=== PATIENT | male | born 2000 | race Caucasian/White ===

== ENCOUNTER 2021-10-10 10:32 | Emergency (ER) | payer MEDICAID, OTHER ==
[2021-10-10] MEDS ORDERED: Diphtheria,Pertussis(Acell),Tetanus Vaccine 0.5 ML Syringe IM ONE (10:46)
[2021-10-10] MEDS ORDERED: Ampicillin/Sulbactam Na 1.5 GM in Sodium Chloride 0.9% 50 ML IV ONE (10:47)
[2021-10-10] MEDS ORDERED: VANCOmycin 1.5 GM/300 ML 1.5 GM in Premix Bag 1 BAG IV ONE (11:00)
[2021-10-10] MEDS ORDERED: Ampicillin/Sulbactam Na 1.5 GM in Sodium Chloride 0.9% 50 ML IV SCH (11:00)
[2021-10-10] MEDS ORDERED: Lactated Ringers 1,000 ML IV SCH (11:15)
--- NOTE | 2021-10-10 11:15 | EDM.PDOC ---
ED HPI GENERAL MEDICAL PROBLEM - General Chief Complaint: Upper Extremity Injury/Pain Stated Complaint: RIGHT POINTER FINGER SWELLING Time Seen by Provider: 10/10/21 10:39 - History of Present Illness INITIAL COMMENTS - FREE TEXT/NARRATIVE: CHIEF COMPLAINT(S): My finger is swollen on right hand HISTORY OF PRESENT ILLNESS: This is a 21-year-old man who comes to the emergency department with a chief complaint of right finger swelling. The patient states that for approximately 4 days now he has been experiencing pain and swelling in his right index finger. He states that he thought he had jammed it at work when he was working with a pipe however it started to swell, turned red and started to be painful. He states that he tried to drain it by cutting it. He states that he did go to [facility] and had an x-ray which did not reveal any fractures however his swelling and redness has continued to worsen and increase. He denies any fevers, chills, chest pain or shortness of breath. He has not yet taken any pain medication. The pain is exacerbated by movement. Pain is improved by not moving his finger. There are no other symptoms. Patient states that his tetanus is not up-to-date. There is no radiation of this pain REVIEW OF SYSTEMS: Constitutional: Denies fever, chills. Eyes: Denies eye pain Ears, Nose, Mouth, & Throat: Denies earache Cardiovascular: Denies chest pain Respiratory: Denies shortness of breath Gastrointestinal: Denies Nausea, vomiting, diarrhea, hematochezia. Genitourinary: Denies hematuria Skin: Positive for redness to right finger and hand MSK: Positive for right finger pain and swelling Neurological: Denies blurred vision, numbness, tingling, weakness Psychiatric: Denies depression PAST MEDICAL HISTORY: As per history of present illness and as reviewed below o therwise noncontributory. SURGICAL HISTORY: As per history of present illness and as reviewed below otherwise noncontributory. SOCIAL HISTORY: As per history of present illness and as reviewed below otherwise noncontributory. FAMILY HISTORY: As per history of present illness and as reviewed below otherwise noncontributory. EXAMINATION OF ORGAN SYSTEMS/BODY AREAS: Constitutional: Blood pressure is 129/88, heart rate 102, respiratory rate 18 with an oxygen saturation 98% on room air. Temperature 36.6 General: Well-appearing man who is in no acute distress Psychiatric: Appropriate mood and affect. Eyes: No scleral icterus or conjunctival erythema ENMT: Moist mucous membranes. No pharyngeal erythema Cardiovascular: Regular, rate, and rhythm. No gallops, murmurs, or rubs. Bilateral upper extremity pulses symmetric and intact. No peripheral edema. No JVD. Capillary refill of the distal right index finger is less than 2 seconds Respiratory: Lungs clear to auscultation bilaterally. No wheezes, rales, or rhonchi. Gastrointestinal: Soft, non-tender, non-distended. Normoactive bowel sounds Genitourinary: No suprapubic tenderness Musculoskeletal: The patient has decreased range of motion of the left index finger. There is pain with passive extension. Right index finger is held in slight flexion skin: Fusiform swelling of the right index finger with tenderness and warmth that extends to the mid hand and the posterior aspect of the hand. There is a 2 cm superficial laceration to the anterior aspect of the right index finger. Neurological: Alert, GCS 15 distal sensation is intact MEDICAL DECISION MAKING AND COURSE IN THE ED WITH INTERPRETATION/REVIEW OF DIAGNOSTIC STUDIES: This is a 21-year-old man without any significant past medical history who comes to the emergency department with right index finger swelling, pain concerning for deep space infection such as flexor tenosynovitis. At this time will obtain a septic work-up and start the patient on vancomycin and Unasyn. We will update the patient's tetanus status. We will also provide the patient with 1 L of lactated Ringer's bolus given the slight tachycardia. Will obtain a right hand x-ray. DDx: Flexor tenosynovitis, cellulitis, abscess Laboratory: CBC reveals a leukocytosis of 14.73 with neutrophilic predominance. INR is normal. CMP reveals hyperglycemia at 125, hyperbilirubinemia with a total bilirubin of 1.1 otherwise unremarkable. CRP is elevated at 5. ESR is normal at 3. Covid and influenza are negative. The radiological images were viewed by myself along with reading the report from the radiologist. Right hand x-ray reveals diffuse soft tissue swelling about the index finger without osseous abnormality. After labs and imaging [facility] Dorsey who recommended incision and drainage I was comfortable to do it at bedside otherwise he can be transferred [facility]. At this time I do believe the patient requires specialty evaluation therefore we will [facility] I spoke with emergency physician Dr. Miranda who accepted the patient for transfer. The patient will be transferred via private vehicle. I did discuss the above results and plan with the patient and he was amenable to this plan. DISPOSITION: The patient was transferred to [facility] in [place] in stable yet serious condition CONDITION: Serious PROCEDURES: None FINAL IMPRESSION(S)/DIAGNOSES: 1. Acute right flexor tenosynovitis of the index finger Emmett Najera M.D. Right Finger-Index Pain Score (Numeric/FACES): 8 - Related Data Allergies Allergy/AdvReac Type Severity Reaction Status Date / Time No Known Allergies Allergy Verified 10/10/21 10:50 Home Meds: Home Meds . [No Known Home Meds] 10/10/21 [History] Past Medical History Musculoskeletal History: Reports: Other (See Below) Other Musculoskeletal History: Right index finger swelling - Infectious Disease History Infectious Disease History: Reports: None - Past Surgical History HEENT Surgical History: Reports: Myringotomy w Tube(s), Tonsillectomy Social & Family History - Caffeine Use Caffeine Use: Reports: Coffee, Energy Drinks, Soda, Tea - Recreational Drug Use Recreational Drug Use: No Review of Systems - Review of Systems Review Of Systems: See Below ED EXAM, GENERAL - Physical Exam Exam: See Below Course - Vital Signs Last Recorded V/S: Last Vital Signs Temp 36.6 C 10/10/21 10:40 Pulse 96 10/10/21 13:29 Resp 18 10/10/21 10:40 BP 130/77 10/10/21 13:29 Pulse Ox 99 10/10/21 13:29 - Orders/Labs/Meds Labs: Laboratory Tests 10/10/21 10/10/21 10/10/21 Range/Units 10:55 10:59 10:59 WBC 14.73 H (4.0-11.0) K/uL RBC 5.17 (4.50-5.90) M/uL Hgb 15.4 (13.0-17.0) g/dL Hct 45.3 (38.0-50.0) % MCV 87.6 (80.0-98.0) fL MCH 29.8 (27.0-32.0) pg MCHC 34.0 (31.0-37.0) g/dL RDW Std Deviation 42.2 (28.0-62.0) fl RDW Coeff of Ashlie 13 (11.0-15.0) % Plt Count 239 (150-400) K/uL MPV 11.00 (7.40-12.00) fL Neut % (Auto) 81.9 H (48.0-80.0) % Lymph % (Auto) 9.7 L (16.0-40.0) % [place] % (Auto) 7.5 (0.0-15.0) % Eos % (Auto) 0.8 (0.0-7.0) % Baso % (Auto) 0.1 (0.0-1.5) % Neut # (Auto) 12.1 H (1.4-5.7) K/uL Lymph # (Auto) 1.4 (0.6-2.4) K/uL [place] # (Auto) 1.1 H (0.0-0.8) K/uL Eos # (Auto) 0.1 (0.0-0.7) K/uL Baso # (Auto) 0.0 (0.0-0.1) K/uL Nucleated RBC % 0.0 /100WBC Nucleated RBCs # 0 K/uL ESR 3 (0-14) mm/hr INR Sodium (136-148) mmol/L Potassium (3.5-5.1) mmol/L Chloride (98-107) mmol/L Carbon Dioxide (21.0-32.0) mmol/L BUN (7.0-18.0) mg/dL Creatinine (0.8-1.3) mg/dL Est Cr Clr Drug Dosing mL/min Estimated GFR (MDRD) ml/min Glucose (74-106) mg/dL Lactic Acid (0.4-2.0) mmol/L Calcium (8.5-10.1) mg/dL Total Bilirubin (0.2-1.0) mg/dL AST (15-37) IU/L ALT (14-63) IU/L Alkaline Phosphatase (46-116) U/L C-Reactive Protein (0.00-0.90) mg/dL Total Protein (6.4-8.2) g/dL Albumin (3.4-5.0) g/dL Globulin (2.6-4.0) g/dL Albumin/Globulin Ratio (0.9-1.6) Influenza Type A RNA NEGATIVE (NEGATIVE) Influenza Type B RNA NEGATIVE (NEGATIVE) SARS-CoV-2 RNA (GUICHO) NEGATIVE (NEGATIVE) 10/10/21 10/10/21 10/10/21 Range/Units 10:59 10:59 10:59 WBC (4.0-11.0) K/uL RBC (4.50-5.90) M/uL Hgb (13.0-17.0) g/dL Hct (38.0-50.0) % MCV (80.0-98.0) fL MCH (27.0-32.0) pg MCHC (31.0-37.0) g/dL RDW Std Deviation (28.0-62.0) fl RDW Coeff of Ashlie (11.0-15.0) % Plt Count (150-400) K/uL MPV (7.40-12.00) fL Neut % (Auto) (48.0-80.0) % Lymph % (Auto) (16.0-40.0) % [place] % (Auto) (0.0-15.0) % Eos % (Auto) (0.0-7.0) % Baso % (Auto) (0.0-1.5) % Neut # (Auto) (1.4-5.7) K/uL Lymph # (Auto) (0.6-2.4) K/uL [place] # (Auto) (0.0-0.8) K/uL Eos # (Auto) (0.0-0.7) K/uL Baso # (Auto) (0.0-0.1) K/uL Nucleated RBC % /100WBC Nucleated RBCs # K/uL ESR (0-14) mm/hr INR 0.98 Sodium 143 (136-148) mmol/L Potassium 3.7 (3.5-5.1) mmol/L Chloride 104 (98-107) mmol/L Carbon Dioxide 28.6 (21.0-32.0) mmol/L BUN 12 (7.0-18.0) mg/dL Creatinine 0.9 (0.8-1.3) mg/dL Est Cr Clr Drug Dosing 125.61 mL/min Estimated GFR (MDRD) > 60.0 ml/min Glucose 125 H (74-106) mg/dL Lactic Acid 1.8 (0.4-2.0) mmol/L Calcium 8.8 (8.5-10.1) mg/dL Total Bilirubin 1.1 H (0.2-1.0) mg/dL AST 11 L (15-37) IU/L ALT 29 (14-63) IU/L Alkaline Phosphatase 85 (46-116) U/L C-Reactive Protein 5.00 H (0.00-0.90) mg/dL Total Protein 8.3 H (6.4-8.2) g/dL Albumin 4.5 (3.4-5.0) g/dL Globulin 3.8 (2.6-4.0) g/dL Albumin/Globulin Ratio 1.2 (0.9-1.6) Influenza Type A RNA (NEGATIVE) Influenza Type B RNA (NEGATIVE) SARS-CoV-2 RNA ([place]) (NEGATIVE) Meds: Medications Discontinued Medications Generic Name Dose Route Start Last Admin Trade Name Freq PRN Reason Stop Dose Admin Diphtheria/Tetanus/Acell Pertussis 0.5 ml 10/10/21 10:46 10/10/21 11:04 Diphtheria,Pertussis(Acell),Tetanus Vaccine 0.5 Ml Syringe IM 10/10/21 10:47 0.5 ml .ONCE ONE Administration Vancomycin HCl 1.5 gm/ Premix 300 mls @ 200 mls/hr 10/10/21 11:00 10/10/21 11:27 IV 10/10/21 12:29 200 mls/hr ONETIME ONE Administration Ampicillin Sodium/Sulbactam 50 mls @ 150 mls/hr 10/10/21 11:00 10/10/21 11:22 Sodium 1.5 gm/ Sodium Chloride IV 150 mls/hr ONETIME WES Administration Lactated Ringer's 1,000 mls @ 999 mls/hr 10/10/21 11:15 Ringers, Lactated IV ASDIRECTED WES Sodium Chloride 1,000 mls @ 999 mls/hr 10/10/21 12:59 10/10/21 13:03 Normal Saline IV 10/10/21 13:59 999 mls/hr .Bolus ONE Administration Ketorolac Tromethamine 30 mg 10/10/21 13:34 10/10/21 13:37 Ketorolac 15 Mg/Ml Sdv IVPUSH 10/10/21 13:35 30 mg ONETIME ONE Administration Vancomycin HCl 1 dose 10/10/21 11:00 Pharmacy To Dose - Vancomycin .XX ASDIRECTED WES Departure - Departure Time of Disposition: 12:30 Disposition: DC/Tfer to Acute Hospital 02 Condition: Serious Clinical Impression: Flexor tenosynovitis of finger - Discharge Information Referrals: PCP,None [Primary Care Provider] - Forms: ED Department Discharge
[2021-10-10 11:39] LABS: CORONAVIRUS COVID-19 NAA NEGATIVE (NEGATIVE); INFLUENZA A NAA NEGATIVE (NEGATIVE); INFLUENZA B NAA NEGATIVE (NEGATIVE)
[2021-10-10 12:05] LABS: BLOOD UREA NITROGEN,BUN 12 mg/dL (7.0-18.0); CARBON DIOXIDE,CO2 28.6 mmol/L (21.0-32.0); CHLORIDE,CL 104 mmol/L (98-107); GLUCOSE RANDOM 125 mg/dL (74-106); POTASSIUM,K 3.7 mmol/L (3.5-5.1); SODIUM,NA 143 mmol/L (136-148)
--- NOTE | 2021-10-10 12:07 | CR ---
Indication: SWOLLEN INDEX FINGER Technique: Three views right hand Comparison: None Findings: Bones: Alignment is normal. No fractures or bone lesions. Joint spaces: Unremarkable. Soft tissues: Diffuse soft tissue swelling about the index finger. Impression: Diffuse soft tissue swelling about the index finger without osseous abnormality. Dictated by Kannan Figueroa MD @ 10/10/2021 12:06:19 PM (Electronically Signed)
[2021-10-10] MEDS ORDERED: Sodium Chloride 0.9% 1,000 ML IV ONE (12:59)
[2021-10-10] MEDS ORDERED: Ketorolac 15 MG/ML SDV IVPUSH ONE (13:34)
== END 2021-10-10 13:43 ==
LOC: MW.ED 10:32
DX: M65.9 Synovitis and tenosynovitis, unspecified (principal); Z23 Encounter for immunization; Z20.822 Contact with and (suspected) exposure to COVID-19
CPT/HCPCS: 0240U; 36415; 73130; 80053; 83605; 85025; 85610; 85652; 86140; 87040; 90471; 90715; 96365; 96366; 96375; 99284; J0295; J1885; J3370; J7030